=== PATIENT | male | born 1980 | race Caucasian/White ===

== ENCOUNTER 2016-11-20 12:39 | Inpatient (IN) | payer SELFPAY ==
[2016-11-20] VITALS (10 sets, daily range): BP systolic 134–193; BP diastolic 85–147; PULSE 82–122; RESP 12–23; O2SAT 94–99
[~2016-11-20] VITALS: Ht 177.8 cm; Wt 69.5 kg
--- NOTE | 2016-11-20 12:51 | ED.REPORT ---
HPI-Chest Pain Under 40 Date of Service Nov 20, 2016 ED Provider: Dr. Ballard A right handed 36 year old male with a history of HTN presents to the ED complaining of syncope that occurred earlier today. He reports that he woke up from unconsciousness with paralysis in whole left side of his body, from which it took him 15 minutes to recover. He describes feeling like he was hit with a stun gun. Associated symptoms include chest pain, with patient stating that they feel like they are going to have a heart attack, and weakness on left side of body. He denies injuring his neck. The patient reports being awake for a day and a half prior to onset of symptoms. He has never followed up with a doctor about his HTN and does not take any medication for it. He is unsure if he has a family history of aortic dissection, aortic aneurism, or blood clots in heart or lungs.He smokes marijuana but denies cigarette or methamphetamine use. Nursing Notes Stated Complaint: CHEST PAIN Chief Complaint: Chest Pain Nursing Notes Reviewed: Yes Allergies: Coded Allergies: No Known Allergies (Unverified , 11/20/16) General Time Seen by MD: 12:51 Chief Complaint Chest pain Hx Obtained From: Patient Arrived By: Walk-in Sudden in Onset?: Yes Onset Occurred: Onset unknown (Earlier today. ) Symptom Duration: Intermittent Severity: Current: Mild Severity: Maximum: Mild Recent Healthcare: No recent doctor visit Similar Sx Previous: No Past Medical History Past Medical History Uncontrolled hypertension Past Surgical History None reported Smoking History Unknown if Ever Smoker Ambulatory Status Independent Review of Systems Review of Systems Note: Paralysis in left side of body after syncope. Cardiovascular: Reports: Chest pain Neurologic: Reports: Syncope, Weakness (left side of body) Complete sys rev & neg: except as marked. Physical Exam Initial Vital Signs Vital Signs (First) Date Time Temp Pulse Resp B/P Pulse Ox O2 Delivery O2 Flow Rate FiO2 11/20/16 12:41 36.6 122 18 193/147 98 Room Air Initial VS: Reviewed General/Constitutional: Awake, Alert Respiratory / Chest: Atraumatic, Breath sounds NL, Breath sounds = bilat, No respiratory distress chest wall normal. Heart Rate / Rhythm: Positive: Tachycardia Hypertensive. Equal pulsesx all 4 extremities. Neck: Atraumatic, Full range of motion Abdomen: Atraumatic, Soft, Non-tender Back: Atraumatic, Full range of motion Lower Extremity / Pelvis / MS: Atraumatic, Full range of motion Skin: Atraumatic, Color NL, Warm, Dry Neurologic: Oriented X3, Speech NL Motor functioning and sensation normal in lower extremities. Head / Eyes: Atraumatic, Normocephalic, PERRL, EOMI Upper Extremity / MS: Atraumatic, Full range of motion 4/5 strength in left shoulder flexion. Wrist / Hand: Atraumatic, Full range of motion 4/5 strength in left hand. Ankle / Foot: Atraumatic, Full range of motion Interpretation & Diagnostics Lab Results Interpretation Result Diagram: 11/20/16 1300 Test 11/20/16 13:00 11/20/16 14:43 White Blood Count 6.7th/mm3 (3.8-10.1) Red Blood Count 5.26mil/mm3 (4.40-5.80) Hemoglobin 17.1g/dL (13.8-17.2) Hematocrit 48.5% (41.0-50.0) Mean Corpuscular Volume 92.2fL (81-100) Mean Corpuscular Hemoglobin 32.5pg (27.0-35.0) Mean Corpuscular Hemoglobin Concent 35.3% (32.0-37.0) Red Cell Distribution Width 13.0% (12.3-15.4) Platelet Count 295bil/L (150-400) Neutrophils (%) (Auto) 65.5% (40-74) Lymphocytes (%) (Auto) 25.0% (14-46) Monocytes (%) (Auto) 8.4% (4-12) Eosinophils (%) (Auto) 0.9% (0-5) Basophils (%) (Auto) 0.1% (0-3) D-Dimer < 0.5mg/L (<0.50) Troponin T < 0.010ug/L (0.0-0.011) ECG Interpretation ECG Interpretation: Rate is 101. Sinus tachycardia. Bilateral enlargement. Left ventricular hypertrophy. ST elev, probable normal early repol pattern. Time: 12:53 Interpreted by: ED physician X-Ray Chest Interpretation Chest Xray Interpretation: Caution: Report not yet finalized and possibly incomplete! IMPRESSION: No acute cardiopulmonary disease. Dictated by: Chalo LECHUGA Interpreted: Lyndsay Betancourt MD on 11/20/2016 at 13:28 Transcribed by: KIM on 11/20/2016 at 13:28 View: Portable, 1 view Interpretation / Wet Read by: Interpret - Radiologist Re-Eval/Medical Decision Med Decision/Clinical Course Syncope with profound hypertension and tachycardia and some residual left-sided weakness in the hand, obviously not an acute TPA candidate due to timing and unclear whether this truly represents ischemic stroke, blood pressure is brought down emergently with nicardipine and metoprolol to more reasonable range, patient is more comfortable and not having continuing chest pain. Currently awaiting imaging results and will be transferred to Dr. deisy Moon Source of Hx: Old records Re-Evaluation/Progress : Time of Eval: 14:14 Re-Evaluation/Progress Note: Rechecked patient. At this time, the patient says that his chest pain has improved and he is watching videos on his cell phone. Counseled Regarding: Diagnosis, Lab results, Need for follow-up, When/why to return to ED Discharge & Departure Shift Change Sign-Out Patient Care Transferred: Yes Discussed Complaint(s): Yes Laboratory Evaluation: Back, reviewed by me Imaging Studies: Ordered, not yet done Primary Impression: Chest pain Referrals: NOPCP (PCP) Care Transferred to: Dr. Wang Care Transferred at: 15:00 Scribe Attestation Portions of this note were transcribed by Lewis Hobbs. I, Dr. Ballard personally performed the history, physical exam and medical decision-making; I reviewed and confirmed the accuracy of the information in the transcribed note. Signed by: Erik Alvarez, 11/20/2016 1515. Lukas Ballard DO Nov 20, 2016 12:51 Lewis Hobbs Nov 20, 2016 13:02
[2016-11-20] MEDS ORDERED: Labetalol 5 mg/mL 4 mL Inj IVPUSH ONE (13:05)
[2016-11-20] MEDS ORDERED: Ondansetron 2 mg/mL 2 mL Inj IVPUSH PRN ×2 (13:05→18:40)
[2016-11-20] MEDS ORDERED: 0.9% Sodium Chloride 1,000 ML IV ONE (13:05)
[2016-11-20] MEDS: NiCARdipine Inj 25 MG in Dextrose 5% 240 ML IV SCH ×4 (13:20→23:40)
[2016-11-20 13:24] LABS: BASOPHILS % (AUTO) 0.1 % (0-3); EOSINOPHILS % (AUTO) 0.9 % (0-5); MONOCYTES % (AUTO) 8.4 % (4-12); Mean Corpuscular Hemoglobin 32.5 pg (27.0-35.0); Mean Corpuscular Volume 92.2 fL (81-100); NEUTROPHILS % (AUTO) 65.5 % (40-74); Platelet Count 295 bil/L (150-400)
--- NOTE | 2016-11-20 13:28 | DRSVH ---
PROCEDURE: X-RAY CHEST ONE VIEW, PORTABLE ([id number]) INDICATIONS: CP TECHNIQUE: One view of the chest was acquired. COMPARISON: None. FINDINGS: Surgical changes and devices: None. Lungs and pleura: No pleural effusions or pneumothorax. Lungs are clear. Mediastinum: Mediastinal contours appear normal. Heart size is normal. Bones and chest wall: No suspicious bony lesions. Overlying soft tissues appear unremarkable. IMPRESSION: No acute cardiopulmonary disease. Dictated by: Chalo LECHUGA Interpreted: Lyndsay Betancourt MD on 11/20/2016 at 13:28 Transcribed by: KIM on 11/20/2016 at 13:28 Approved by: Lyndsay Betancourt M.D. on 11/22/2016 at 16:04
[2016-11-20] MEDS: MeTOProlol 1 mg/mL 5 mL Inj IVPUSH SCH ×2 (13:29→14:13)
[2016-11-20 15:23] LABS: TROPONIN T < 0.010 ug/L (0.0-0.011)
[2016-11-20 15:33] LABS: Magnesium 2.2 mg/dL (1.6-2.6)
[2016-11-20] MEDS ORDERED: Atropine 1 mg/10 mL (Code) Syringe ONE (15:43)
--- NOTE | 2016-11-20 16:12 | DRSVH ---
PROCEDURE: CT BRAIN WITHOUT CONTRAST ([id number]) INDICATIONS: syncope, chest pain, hypertension, left sided weak TECHNIQUE: Noncontrast 4.5 mm thick angled axial sections acquired from the foramen magnum to the vertex, with c oronal reformats. COMPARISON: None. FINDINGS: Image quality: Excellent. CSF spaces: Basal cisterns are patent. No extra-axial fluid collections. Ventricles are normal in size and shape. Brain: No midline shift. No intracranial masses or hemorrhage. Bundy-white matter interface is norm al. Skull and face: Calvarium and visualized facial bones are intact, without suspicious lesions. Sinuses: Visualized sinuses and mastoids are clear. IMPRESSION: No acute intracranial disease process. Dictated by: Angelique Aguilar MD, PhD on 11/20/2016 at 16:09 Approved by: Angelique Aguilar MD, PhD on 11/20/2016 at 16:11
[2016-11-20] MEDS ORDERED: NPR500T PO (16:36)
[2016-11-20] MEDS ORDERED: OXYC-407 PO (16:36)
[2016-11-20] MEDS ORDERED: HYDR28.484 TOPICAL (16:42)
--- NOTE | 2016-11-20 16:42 | DRSVH ---
PROCEDURE: CT ANG CHEST/ABD W/WO CONTRAST ([id number]) INDICATIONS: syncope, chest pain, hypertension, left sided weak TECHNIQUE: Precontrast 5 mm thick sections acquired from the lung apices to the iliac crests. After the adminis tration of intravenous contrast, 3 mm thick sections again acquired from the lung apices to the iliac crests. 3-dimensional maximum intensity projection (MIP) oblique sagittal and coronal reformats wer e then acquired, and/or 3-dimensional volume rendering reformats. For radiation dose reduction, the following was used: automated exposure control. COMPARISON: None. FINDINGS: Image quality: Excellent. AORTA: Intramural hematoma: Absent Maximum hematoma thickness: Not applicable. Focal contrast enhancement: Intramural blood pool (< 2 mm neck or imperceptible communication with aortic lumen): Absent. Ulcer-like projection (broad communication with aortic lumen > 3 mm): Sent. Dissection: Absent Fran classification: Not applicable. Maximum aortic diameter: 3.1 cm. [If Fran A dissection, > 5.0 cm has a poorer prognosis. If Sta nford B dissection, > 4.0 cm has a poorer prognosis.] Periaortic hematoma: Absent. CHEST: Lungs and pleura: No acute airspace opacities. No pleural effusions or pneumothorax. Central and p eripheral airways are patent and normal in caliber. Mediastinum: Heart size is normal. No pericardial effusion. No mediastinal or hilar adenopathy by size criteria. Central pulmonary arteries are normal in size. Esophagus is normal in caliber. No h iatal hernias. Bones and chest wall: No axillary adenopathy by size criteria. Thyroid gland is within normal limit s. No suspicious bony lesions. No vertebral body compression fractures. Old anterior left sixth rib fracture noted. ABDOMEN: Vasculature: Celiac trunk and mesenteric arteries are patent. Renal arteries are also patent. Solid organs: Liver and spleen are normal in size. Gallbladder is within normal limits. Biliary sy stem is non dilated. Pancreas enhances normally. No adrenal nodules. Both kidneys are normal in si ze and enhancement, without hydronephrosis. Peritoneum and bowel: No free fluid or air. Bowel loops are normal in caliber and wall thickness. Nodes and vessels: No retroperitoneal or mesenteric adenopathy by size criteria. Inferior vena cava is normal in morphology. Bones: No suspicious bony lesions. No vertebral body compression fractures. Chronic right L2 and L3 transverse process fracture is noted. Miscellaneous: No ventral hernias. IMPRESSION: 1. No evidence of aortic dissection or aneurysm. 2. No acute airspace opacities in the lungs. Dictated by: Angelique Aguilar MD, PhD on 11/20/2016 at 16:32 Approved by: Angelique Aguilar MD, PhD on 11/20/2016 at 16:41
[2016-11-20] MEDS ORDERED: Alum-Mag Hydrox-Simeth 30 mL Suspension PO PRN (18:40)
[2016-11-20] MEDS ORDERED: Polyethylene Glycol (PEG) 17 Gm Powder PO PRN (18:40)
[2016-11-20] MEDS ORDERED: Senna-Docusate 8.6-50 mg Tablet PO PRN (18:40)
--- NOTE | 2016-11-20 18:53 | PCM.HPMED ---
Subjective Date of Service Nov 20, 2016 Primary Provider: Admitting Physician: Jimmy Montgomery MD Primary Care Physician: Gustavo Attending Physician: Jimmy Montgomery MD Chief Complaint: "Blacked out" several times yesterday and today. . History of Present Illness: Mr. Gilda Koch is a pleasant 36-year-old gentleman who presented to the [facility] Emergency Department complaining of several episodes of syncope starting yesterday and continuing today. Patient has no previous episodes like this and described new onset headache (right-sided), slurred speech, chest pain/ pressure (substernal and with inspiration), pallor, diaphoresis, blurred vision , lightheadedness, dizziness, and slight nausea that accompanied these episodes of syncope. He believed each episode lasted for several seconds and resulted in generalized weakness, left worse than right. Patient does not know exactly how many of these episodes he suffered, although he said there were several and that they were increasing frequency over the course of the day today. Patient found himself waking up on the floor several times, but denied striking his head or jeopardizing his neck. Patient denied any bruising, cuts, or other lesions that could be attributed to ground level falls. Patient does have a history of hypertension but has never completed a workup for same and has never been treated with any prescription medications for hypertension. Patient did admit that he snorted a line of what he thought was cocaine last Saturday. Unusually, he noted a burning sensation following use and thought that the substance was adulterated in some way. Patient also uses marijuana and tobacco daily, as well as alcohol several times weekly. Patient is currently on no prescription medications and denied any recent over- the-counter medications except for aspirin taken in the last 24-48 hours. Patient further denied any recent illness, ill exposures, travel. . Review of Systems: Review of systems was negative for fever, chills, sore throat, vomiting, numbness, or tingling. In addition to what was mentioned above in the History of Present Illness, patient endorsed generalized weakness, fatigue, and at least 2 nights of fitful sleep. . Allergies Coded Allergies: No Known Allergies (Unverified , 11/20/16) Home Medications No prescription medications . PMH Past medical history is significant only for incomplete workup of hypertension with no prescription therapy for same. . Surgical History Surgical history significant for appendectomy approximately 20 years ago and right inguinal hernia repair as a child. . Family History Patient's mother is 65 years old and has recent history of breast cancer (as does the patient's grandmother). Patient's father 61 with a hypertension history. Patient has 3 brothers, one of whom is obese; the others are otherwise healthy. Patient has one sister who is in good health, as far as the patient knows. . 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 External ears without defect. Pupils equal, round, and reactive to light and accommodation. Anicteric sclerae, moist conjunctivae, and no lid lag. Oropharynx free of erythema and cobble stoning with moist mucosa. Poor dentition. Neck: Supple with full range of motion. No jugular venous distension. No bruits. No lymphadenopathy or thyromegaly. Cardiovascular: Regular rate and rhythm with no murmurs, rubs, or gallops appreciated Pulmonary: Clear to auscultation bilaterally with no crackles, wheezes, or rhonchi. Normal respiratory effort with no use of accessory muscles. Abdomen: Bowel tones present. Soft, nontender, nondistended. No hepatosplenomegaly or masses appreciated. Extremities: No clubbing, cyanosis, edema, or lymphadenopathy appreciated. Skin: Normal temperature, turgor, and texture; no rash, ulcers, or subcutaneous nodules appreciated. Neurological: Cranial nerves grossly intact. Normal muscle strength, tone, and bulk. Reflexes, coordination, and sensory function within normal limits. No known gait impairment. Psychiatric: Normal mood and affect. Alert and oriented to person, place, and time. . Lab and Diagnostics Result Diagram: 11/20/16 1300 11/20/16 1443 Microbiology No cultures drawn and pending. . X-Rays, CTs and MRIs CT BRAIN WITHOUT CONTRAST IMPRESSION: No acute intracranial disease process. Dictated by: Angelique Aguilar MD, PhD on 11/20/2016 at 16:09 Approved by: Angelique Aguilar MD, PhD on 11/20/2016 at 16:11 CT ANG CHEST/ABD W/WO CONTRAST IMPRESSION: 1. No evidence of aortic dissection or aneurysm. 2. No acute airspace opacities in the lungs. Dictated by: Angelique Aguilar MD, PhD on 11/20/2016 at 16:32 Approved by: Angelique Aguilar MD, PhD on 11/20/2016 at 16:41 X-RAY CHEST ONE VIEW, PORTABLE IMPRESSION: No acute cardiopulmonary disease. Dictated by: Chalo Stark RRGregoria Interpreted: Lyndsay Betancourt MD on 11/20/2016 at 13: 28 Transcribed by: KIM on 11/20/2016 at 13:28 . 12-lead ECG Sinus tachycardia, rate 101, no acute ST or T wave elevations . Assessment & Plan Mr. Gilda Koch is a pleasant 36-year-old gentleman admitted for hypertensive emergency in the setting of recent methamphetamine use and history of uncontrolled hypertension. 1. Hypertensive emergency, present on admission. Resolved. -Likely secondary to recent stimulant use in the setting of uncontrolled baseline hypertension - Blood pressure control achieved with use of nicardipine drip initiated in the Emergency Department - Continue on floor to achieve goal of systolic blood pressure less than 160 mmHg and diastolic blood pressure less than 100 mmHg - Imaging, as above, negative for acute intracranial or vascular processes - Patient's neurological examination is essentially normal at this time and no further imaging is needed unless there is a change in status - Admit to Intensive Care Unit for monitoring overnight, with regular neuro checks by Nursing 2. Hypertension, uncontrolled, chronic. Labile. - Wean off nicardipine drip as able - Consider antihypertensive therapy at time of discharge - Close follow-up in clinic for this problem, as well as ambulatory blood pressure monitoring 3. Polysubstance abuse, present on admission. Ongoing. - Patient was strongly recommended to forego cocaine, methamphetamine, alcohol, nicotine use at least until hypertension is adequately assessed and treated 4. Tobacco dependence, present on admission. Ongoing. - Nicotine replacement therapy provided as desired -Acetaminophen as needed for mild pain/fever/headache Antiemetic as needed- -Bowel regimen as needed Patient status: Patient was admitted under observation status with expected length of stay less than 2 midnights for frequent monitoring following hypertensive emergency and ongoing need for continuous infusion. . Pain Evaluation: Adequate Pain Control GI Prophylaxis: Not indicated VTE Prophylaxis Indicated: Meets Criteria for Anticoag Therapy VTE Prophylaxis: Sub-Q Heparin (Unfractionated) VTE Mechanical Devices: Intermittant Pneumatic CD Resuscitation Status: CPR: Attempt Resuscitation Jimmy Montgomery MD Nov 20, 2016 18:53
[2016-11-20] MEDS: Heparin 5,000 Unit/mL Inj SUBQ SCH (20:45)
[2016-11-20] MEDS: 0.9% Sodium Chloride 1,000 ML IV SCH ×2 (20:45→22:09)
[2016-11-21 00:30] VITALS: BP 133/82; PULSE 72; RESP 21; O2SAT 96
[2016-11-21] MEDS: NiCARdipine Inj 25 MG in Dextrose 5% 240 ML IV SCH ×2 (01:07→08:07)
[2016-11-21 04:19] VITALS: BP 147/94; PULSE 66; RESP 21; O2SAT 96
--- NOTE | 2016-11-21 05:50 | NUR ---
Admit/Cardiac/Pain 1950 - Patient admitted to room 2020, no distress noted, BP 130's/70's on low dose Nicardipine at 5mg/hr, call light in reach, patients girlfriend at bedside, admission completed, still states his left arm and leg are weaker than the right side but improving, A&O x 4. 2200 - Patient titrated off Nicardipine gtt and BP remaining within goal, averaging 120's/70's, left side weakness improving per patient, HR NSR in the 70's. 0545 - Patient doing well, still remains off Nicardipine gtt and BP 123/82, pleasant and cooperative, no distress noted, will continue to monitor, NS infusing at 100ml/hr. Addendum: 11/21/16 at 0600 by ALICIA ROACH RN Headache improved since Tylenol given and ice pack pain 3/10 and stated pain level of 3 is tolerable. Addendum: 11/21/16 at 0600 by ALICIA ROACH RN Amended: Links added.
[2016-11-21] MEDS: Heparin 5,000 Unit/mL Inj SUBQ SCH (08:07)
[2016-11-21] MEDS: 0.9% Sodium Chloride 1,000 ML IV SCH (08:07)
[2016-11-21 08:08] VITALS: BP 130/82; PULSE 77; RESP 22; O2SAT 97
[2016-11-21] MEDS ORDERED: HYDR25TA4 PO (08:44)
--- NOTE | 2016-11-21 08:53 | PCM.DIMED ---
Deneen Nazario DO 11/21/16 0842: Discharge Instructions Date of Service Nov 21, 2016 Dates of Hospitalization Nov 20, 2016 at 18:37 Discharge Diagnosis Discharge Diagnosis 1. Hypertensive emergency, present on admission. 2. Hypertension, uncontrolled, chronic. 3. Polysubstance abuse, present on admission. 4. Tobacco dependence, present on admission. Medication Instructions You will be going home with a new medication called hydrochlorothiazide. You will take this every day. The dose is 25 mg. You have been given a two month supply and it has been sent to [facility] [place]. Continue any other previously prescribed medications. We have made no changes to those. Diet Heart Healthy Activity No restrictions Call your provider Fever or Chills, Shortness of breath, Bleeding, Chest pain, Vomitting, Excessive diarrhea, Weakness (unilateral), Other (Worsening headache) Patient Instructions While we are trying to get your blood pressure under control do your best to avoid cocaine, methamphetamine and even alcohol. 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 You are welcome to see Dr. Terry in the [facility] clinic at [facility] and [facility] in [place]. You should plan to see him in about one-two weeks so we can check your blood pressure again. Please call [phone] today and try to schedule an appointment at your convenience. Follow-up Provider: Jeet Terry DO Follow-up with PCP in: Other (1-2 weeks) Jimmy Montgomery MD 11/22/16 0728: Discharge Instructions Attending's Statement The patient was seen and examined together with Dr. Nazario on 11/21/2016 and I agree with the history, exam and plan as outlined in the note above. . Deneen Nazario DO Nov 21, 2016 08:42 Jimmy Montgomery MD Nov 22, 2016 07:28
--- NOTE | 2016-11-21 12:01 | PCM.PNMED ---
Subjective Date of Service Nov 21, 2016 Subjective overnight: no acute events. Nicardipine drip titrated off at 22:00 and remained relatively normotensive. today: patient denies trouble walking. Weakness has resolved. The patient states that for two days after doing cocaine cut with methamphetamines he felt terrible. He went to work Sunday 11/19 and had the event at approximately 4pm. He denies any history of dysrhythmias. He will not due cocaine or meth again. Exam Vital Signs Vital Sign - Last Date Time Temp Pulse Resp B/P Pulse Ox O2 Delivery O2 Flow Rate FiO2 11/21/16 04:19 36.7 66 21 147/94 96 Room Air Intake and Output 11/20/16 11/20/16 11/21/16 Cumulative From/Thru 15:00 23:00 07:00 11/20/16 12:41 - 11/21/16 05:46 Intake Total 100 ml 1883 ml 1983 ml Output Total 875 ml 875 ml Balance 100 ml 1008 ml 1108 ml Intake Oral 100 ml 100 ml IV Total 1163 ml 1163 ml TPN/PPN 720 ml 720 ml Output Urine Total 875 ml 875 ml # Bowel Movements 0 0 Exam General: No acute distress, well-developed, well-nourished, appropriately interactive HEENT: Normocephalic, atraumatic. External ears without defect. Pupils equal, round, and reactive to light and accommodation. Anicteric sclerae, moist conjunctivae, and no lid lag. Oropharynx free of erythema and cobble stoning with moist mucosa. Poor dentition. Neck: Supple with full range of motion. No jugular venous distension. No bruits. No lymphadenopathy or thyromegaly. Cardiovascular: Regular rate and rhythm with no murmurs, rubs, or gallops appreciated Pulmonary: Clear to auscultation bilaterally with no crackles, wheezes, or rhonchi. Normal respiratory effort with no use of accessory muscles. Abdomen: Bowel tones present. Soft, nontender, nondistended. No hepatosplenomegaly or masses appreciated. Extremities: No clubbing, cyanosis, edema, or lymphadenopathy appreciated. Left foot with Clark Neuroma, and overlying callus. Skin: Normal temperature, turgor, and texture; no rash, ulcers, or subcutaneous nodules appreciated. Neurological: Cranial nerves II-XII grossly intact. 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 No Romberg pronator drift, no dysdiadochokinesia, or past pointing. No gait impairment. Psychiatric: Normal mood and affect. Alert and oriented to person, place, and time. Lab and Diagnostics Result Diagram: 11/20/16 1300 11/20/16 1443 Microbiology No cultures drawn and pending. . X-Rays, CTs and MRIs CT BRAIN WITHOUT CONTRAST IMPRESSION: No acute intracranial disease process. Dictated by: Angelique Aguilar MD, PhD on 11/20/2016 at 16:09 Approved by: Angelique Aguilar MD, PhD on 11/20/2016 at 16:11 CT ANG CHEST/ABD W/WO CONTRAST IMPRESSION: 1. No evidence of aortic dissection or aneurysm. 2. No acute airspace opacities in the lungs. Dictated by: Angelique Aguilar MD, PhD on 11/20/2016 at 16:32 Approved by: Angelique Aguilar MD, PhD on 11/20/2016 at 16:41 X-RAY CHEST ONE VIEW, PORTABLE IMPRESSION: No acute cardiopulmonary disease. Dictated by: Chalo Stark [facility] Interpreted: Lyndsay Betancourt MD on 11/20/2016 at 13: 28 Transcribed by: KIM on 11/20/2016 at 13:28 . 12-lead ECG Sinus tachycardia, rate 101, no acute ST or T wave elevations . Additional Diagnostics Telemetry box shows a single heart block where a QRS was not propagated from a p wave Assessment & Plan Mr. Gilda Koch is a pleasant 36-year-old gentleman admitted for hypertensive emergency in the setting of recent methamphetamine use and history of uncontrolled hypertension. 1. Hypertensive emergency, present on admission. Resolved. - Likely secondary to recent stimulant use including possible dysrhythmia with noted Telemetry box shows a single heart block where a QRS was not propagated from a p wave in the setting of uncontrolled baseline hypertension - Blood pressure control achieved with use of nicardipine drip initiated in the Emergency Department easily titrated off within hours - Imaging, as above, negative for acute intracranial or vascular processes - Patient's neurological examination is essentially normal at this time and no further imaging is needed unless there is a change in status 2. Hypertension, uncontrolled, chronic. Labile. - Weaned off nicardipine drip at 2200 on 11/20 - HCTZ 12.5mg daily at time of discharge - Close follow-up in [facility] clinic for this problem, as well as ambulatory blood pressure monitoring 3. Polysubstance abuse, present on admission. Ongoing. - Patient was strongly recommended to forego cocaine, methamphetamine, alcohol, nicotine use at least until hypertension is adequately assessed and treated 4. Tobacco dependence, present on admission. Ongoing. - Nicotine replacement therapy provided as desired -Acetaminophen as needed for mild pain/fever/headache Antiemetic as needed- -Bowel regimen as needed Disposition: discharge home today with follow up at [facility] with new PCP Mara . GI Prophylaxis: Not indicated VTE Prophylaxis: Sub-Q Heparin (Unfractionated) VTE Mechanical Devices: Intermittant Pneumatic CD Resuscitation Status: CPR: Attempt Resuscitation Attending Statement The patient was seen and examined together with Dr. Terry on 11/21/2016 and I agree with the history, exam and plan as outlined in the note above. . Jeet Terry DO Nov 21, 2016 06:48 Jimmy Montgomery MD Nov 24, 2016 15:05
--- NOTE | 2016-11-21 17:56 | PCM.DC.MED ---
Discharge Summary Date of Service Nov 21, 2016 Dates of Hospitalization Date of Hospital Admission Nov 20, 2016 at 18:37 Date of Discharge: Nov 21, 2016 Providers: Admitting Physician: Jimmy Montgomery MD Primary Care Physician: Noplaine Attending Physician: Jimmy Montgomery MD Diagnosis at Time of Discharge Diagnosis at Time of Discharge 1. Hypertensive emergency, present on admission. 2. Hypertension, uncontrolled, chronic. 3. Polysubstance abuse, present on admission. 4. Tobacco dependence, present on admission. Procedures XRay, CTs & MRIs CT BRAIN WITHOUT CONTRAST IMPRESSION: No acute intracranial disease process. Dictated by: Angelique Aguilar MD, PhD on 11/20/2016 at 16:09 Approved by: Angelique Aguilar MD, PhD on 11/20/2016 at 16:11 CT ANG CHEST/ABD W/WO CONTRAST IMPRESSION: 1. No evidence of aortic dissection or aneurysm. 2. No acute airspace opacities in the lungs. Dictated by: Angelique Aguilar MD, PhD on 11/20/2016 at 16:32 Approved by: Angelique Aguilar MD, PhD on 11/20/2016 at 16:41 X-RAY CHEST ONE VIEW, PORTABLE IMPRESSION: No acute cardiopulmonary disease. Dictated by: Chalo Stark RRA Interpreted: Lyndsay Betancourt MD on 11/20/2016 at 13: 28 Transcribed by: IKM on 11/20/2016 at 13:28 . ECG 12 Lead Sinus tachycardia, rate 101, no acute ST or T wave elevations . Other Diagnostics Telemetry box shows a single heart block where a QRS was not propagated from a p wave Brief History from the H&P of Jimmy Montgomery M.D. "Mr. Gilda Koch is a pleasant 36-year-old gentleman who presented to the [facility] Emergency Department complaining of several episodes of syncope starting yesterday and continuing today. Patient has no previous episodes like this and described new onset headache (right-sided), slurred speech, chest pain/ pressure (substernal and with inspiration), pallor, diaphoresis, blurred vision , lightheadedness, dizziness, and slight nausea that accompanied these episodes of syncope. He believed each episode lasted for several seconds and resulted in generalized weakness, left worse than right. Patient does not know exactly how many of these episodes he suffered, although he said there were several and that they were increasing frequency over the course of the day today. Patient found himself waking up on the floor several times, but denied striking his head or jeopardizing his neck. Patient denied any bruising, cuts, or other lesions that could be attributed to ground level falls. Patient does have a history of hypertension but has never completed a workup for same and has never been treated with any prescription medications for hypertension. Patient did admit that he snorted a line of what he thought was cocaine last Saturday. Unusually, he noted a burning sensation following use and thought that the substance was adulterated in some way. Patient also uses marijuana and tobacco daily, as well as alcohol several times weekly. Patient is currently on no prescription medications and denied any recent over- the-counter medications except for aspirin taken in the last 24-48 hours. Patient further denied any recent illness, ill exposures, travel." . Hospital Course Mr. Gilda Koch is a pleasant 36-year-old gentleman admitted for hypertensive emergency in the setting of recent methamphetamine use and history of uncontrolled hypertension. 1. Hypertensive emergency, present on admission. Resolved. - Likely secondary to recent stimulant use including possible dysrhythmia with noted Telemetry box shows a single heart block where a QRS was not propagated from a p wave in the setting of uncontrolled baseline hypertension - Blood pressure control achieved with use of nicardipine drip initiated in the Emergency Department easily titrated off within hours - Imaging, as above, negative for acute intracranial or vascular processes - Patient's neurological examination is essentially normal at this time and no further imaging is needed unless there is a change in status 2. Hypertension, uncontrolled, chronic. Labile. - Weaned off nicardipine drip at 2200 on 11/20 - HCTZ 12.5mg daily at time of discharge - Close follow-up in [facility] clinic for this problem, as well as ambulatory blood pressure monitoring 3. Polysubstance abuse, present on admission. Ongoing. - Patient was strongly recommended to forego cocaine, methamphetamine, alcohol, nicotine use at least until hypertension is adequately assessed and treated 4. Tobacco dependence, present on admission. Ongoing. - Nicotine replacement therapy provided as desired Exam Vital Signs (Last) Date Time Temp Pulse Resp B/P Pulse Ox O2 Delivery O2 Flow Rate FiO2 11/21/16 08:08 37.0 77 22 130/82 97 Room Air Exam General: No acute distress, well-developed, well-nourished, appropriately interactive HEENT: Normocephalic, atraumatic. External ears without defect. Pupils equal, round, and reactive to light and accommodation. Anicteric sclerae, moist conjunctivae, and no lid lag. Oropharynx free of erythema and cobble stoning with moist mucosa. Poor dentition. Neck: Supple with full range of motion. No jugular venous distension. No bruits. No lymphadenopathy or thyromegaly. Cardiovascular: Regular rate and rhythm with no murmurs, rubs, or gallops appreciated Pulmonary: Clear to auscultation bilaterally with no crackles, wheezes, or rhonchi. Normal respiratory effort with no use of accessory muscles. Abdomen: Bowel tones present. Soft, nontender, nondistended. No hepatosplenomegaly or masses appreciated. Extremities: No clubbing, cyanosis, edema, or lymphadenopathy appreciated. Left foot with Clrak Neuroma, and overlying callus. Skin: Normal temperature, turgor, and texture; no rash, ulcers, or subcutaneous nodules appreciated. Neurological: Cranial nerves II-XII grossly intact. 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 No Romberg pronator drift, no dysdiadochokinesia, or past pointing. No gait impairment. Psychiatric: Normal mood and affect. Alert and oriented to person, place, and time. Test 11/20/16 13:00 11/20/16 14:43 11/20/16 16:34 White Blood Count 6.7th/mm3 (3.8-10.1) Red Blood Count 5.26mil/mm3 (4.40-5.80) Hemoglobin 17.1g/dL (13.8-17.2) Hematocrit 48.5% (41.0-50.0) Mean Corpuscular Volume 92.2fL (81-100) Mean Corpuscular Hemoglobin 32.5pg (27.0-35.0) Mean Corpuscular Hemoglobin Concent 35.3% (32.0-37.0) Red Cell Distribution Width 13.0% (12.3-15.4) Platelet Count 295bil/L (150-400) Neutrophils (%) (Auto) 65.5% (40-74) Lymphocytes (%) (Auto) 25.0% (14-46) Monocytes (%) (Auto) 8.4% (4-12) Eosinophils (%) (Auto) 0.9% (0-5) Basophils (%) (Auto) 0.1% (0-3) D-Dimer < 0.5mg/L (<0.50) Sodium Level 135mEq/L (134-144) Potassium Level 3.8mEq/L (3.5-5.2) Chloride Level 96mEq/L (97-108) Carbon Dioxide Level 23mmol/L (18-29) Blood Urea Nitrogen 5mg/dL (6-20) Creatinine 0.67mg/dL (0.76-1.27) Estimat Glomerular Filtration Rate 142mL/min (>59) Glucose Level 111mg/dL (60-99) Calcium Level 9.2mg/dL (8.5-10.1) Magnesium Level 2.2mg/dL (1.6-2.6) Total Bilirubin 0.8mg/dL (0.0-1.2) Aspartate Amino Transf (AST/SGOT) 20U/L (0-50) Alanine Aminotransferase (ALT/SGPT) 15U/L (0-44) Alkaline Phosphatase 100U/L (25-150) Troponin T < 0.010ug/L (0.0-0.011) Total Protein 7.9g/dL (6.4-8.4) Albumin 4.7g/dL (3.4-5.0) Hold Urine Received (Received) Microbiology Results No cultures drawn and pending. . Discharge Medications Discharge Medications Hydrochlorothiazide (Hydrochlorothiazide) 25 Mg Tablet 25 MG PO DAILY Prescribed by: MINERVA VERAS, DO As needed Hydrocortisone (Hydrocortisone) 1 % Cream..g. 1 APPLIC TOPICAL BID PRN PRN RASH (Reported) Naproxen (Naproxen) 500 Mg Tab 500-1,000 MG PO BID PRN PRN For Pain (Reported) Oxycodone HCl/Acetaminophen 5-325 (Endocet 5-325) 1 Each Tablet 1 TABLET PO BID PRN PRN For Pain (Reported) Additional med instructions You will be going home with a new medication called hydrochlorothiazide. You will take this every day. The dose is 25 mg. You have been given a two month supply and it has been sent to [facility]. Continue any other previously prescribed medications. We have made no changes to those. Followup Plan Disposition: home Follow-up plan You will need to establish care with a physician in the area to help you monitor your blood pressure group home and refill your new medication. You are welcome to see Dr. Terry in the [facility] at [facility] and [facility] in [place]. You should plan to see him in about one-two weeks so we can check your blood pressure again. Please call [phone] today and try to schedule an appointment at your convenience. Discharge Diet: Heart Healthy Discharge Activity: No restrictions Patient Instructions While we are trying to get your blood pressure under control do your best to avoid cocaine, methamphetamine and even alcohol. Follow-up Provider: Jeet Terry DO Follow-up with PCP in: Other (1-2 weeks) Attending Statement The patient was seen and examined together with Dr. Terry on 11/21/2016 and I agree with the history, exam and plan as outlined in the note above. . Jeet Terry DO Nov 21, 2016 17:56 Jimmy Montgomery MD Nov 24, 2016 15:09
== END 2016-11-21 08:30 | disposition home or self-care (01) | DRG 305 ==
LOC: SED 12:39 → CCU 18:37
PROVIDERS: ADMIT Internal Medicine; ATTEND Internal Medicine
DX: I16.1 Hypertensive emergency (principal); I10 Essential (primary) hypertension; F17.210 Nicotine dependence, cigarettes, uncomplicated; F15.10 Other stimulant abuse, uncomplicated